=== PATIENT | male | born 1950 | race Two or more races ===

== ENCOUNTER 2018-01-13 23:58 | Emergency (ER) | payer MEDICAID, OTHER ==
[~2018-01-13] VITALS: Ht 165.1 cm; Wt 81.6 kg
[2018-01-14 01:03] LABS: Basophils # (auto) 0.1 uL; Basophils % (auto) 0.6 % (0.0-2.0); Eosinophils # (auto) 0.1 uL; Eosinophils % (auto) 0.6 % (0.0-7.0); Hematocrit 46.6 % (41.0-53.0); Hemoglobin 15.5 g/dL (13.5-17.5); Lymphocytes # (auto) 1.4 uL; Lymphocytes % (auto) 11.6 % (10.0-50.0); Mean Corpuscular Hgb Conc. 33.3 g/dL (32.0-36.0); Mean Corpuscular Volume 93.2 fL (80.0-100.0); Monocytes # (auto) 0.5 uL; Monocytes % (auto) 4.4 % (0.0-12.0); Neutrophils # (auto) 9.8 uL; Neutrophils % (auto) 82.8 % (37.0-80.0); Platelet Count (auto) 236 10^3/uL (140-450); Red Cell Distribution Width 14.1 % (11.8-14.3); White Blood Cell 11.9 10^3/uL (4.4-10.8)
[2018-01-14 01:05] LABS: Urine Bacteria NONE SEEN /hpf (None Seen); Urine Blood Negative /uL (Negative); Urine Mucus FEW (None Seen); Urine Specific Gravity 1.025 (1.001-1.035); Urine WBC 5 /hpf (0 - 3)
[2018-01-14 01:16] LABS: INR 0.95 (0.9-1.15); Partial Thromboplastin Time 24.1 sec (23.78-33.04); Prothrombin Time 10.2 sec (9.27-12.13)
[2018-01-14 01:20] LABS: Alanine Aminotransferase 35 U/L (16-61); Albumin 3.7 g/dL (3.4-5.0); Anion Gap 9 (5-15); Aspartate Aminotransferase 19 U/L (15-37); BUN/Creatinine Ratio 12.9; Blood Urea Nitrogen 15 mg/dL (7-18); Calcium 8.7 mg/dL (8.5-10.1); Carbon Dioxide 24 mmol/L (21-32); Chloride 108 mmol/L (98-107); GFR African American 81 mL/min; GFR Non-African American 67 mL/min; Glucose 159 mg/dL (74-106); Magnesium 2.2 mg/dL (1.6-2.6); Potassium 4.3 mmol/L (3.5-5.1); Sodium 141 mmol/L (136-145)
[2018-01-14 01:25] LABS: Alkaline Phosphatase 79 U/L (45-117); Bilirubin, Total 0.4 mg/dL (0.2-1.0); Total Protein 6.9 g/dL (6.4-8.2)
[2018-01-14] MEDS ORDERED: MECLIZINE HCL 25 MG TAB PO ONE (02:30)
[2018-01-14] MEDS ORDERED: ONDANSETRON HCL 4 MG/2 ML VIAL ONE (03:32)
[2018-01-14] MEDS ORDERED: ONDANSETRON HCL 4 MG/2 ML VIAL IV ONE (03:45)
[2018-01-14] MEDS ORDERED: SODIUM CHLORIDE 0.9% 1,000 ML IV ONE (03:45)
[2018-01-14 03:46] VITALS: BP 90/59
== END 2018-01-14 04:40 | disposition home or self-care (01) ==
LOC: EDBD 23:58 → ER 01-14 00:03
DX: H81.10 Benign paroxysmal vertigo, unspecified ear (principal); E11.9 Type 2 diabetes mellitus without complications; I10 Essential (primary) hypertension; I25.2 Old myocardial infarction; F17.210 Nicotine dependence, cigarettes, uncomplicated; Z95.1 Presence of aortocoronary bypass graft
CPT/HCPCS: 36415; 70450; 71045; 80053; 81001; 83735; 83880; 84484; 85025; 85610; 85730; 93005; 96361; 96374; 99285; J2405; J8597